=== PATIENT | male | born 1980 | race African-American/Black ===

== ENCOUNTER 2019-03-06 07:30 | Emergency (ER) | payer OTHER, SELFPAY ==
--- NOTE | 2019-03-06 08:35 | RAD ---
LEFT KNEE 5 VIEWS: HISTORY: left knee pain COMPARISON: 02/28/2014 FINDINGS: No fracture, dislocation or bony destruction is seen.
== END 2019-03-06 09:00 | disposition home or self-care (01) ==
LOC: MADERS 07:30
DX: S83.92XA Sprain of unspecified site of left knee, initial encounter (principal); X58.XXXA Exposure to other specified factors, initial encounter

== ENCOUNTER 2022-02-20 07:42 | Emergency (ER) | payer OTHER ==
[2022-02-20] MEDS ORDERED: Ibuprofen 800 MG TAB ONE (08:19)
== END 2022-02-20 08:27 | disposition home or self-care (01) ==
LOC: MADERS 07:42
DX: M25.471 Effusion, right ankle (principal)
CPT/HCPCS: 99283

== ENCOUNTER 2022-03-06 16:30 | Outpatient (CLI) | payer OTHER ==
[2022-03-06 17:39] LABS: ALT (SGPT) 21 U/L (8-55); AST (SGOT) 26 U/L (5-34); Albumin 4.6 g/dL (3.5-5.0); Alkaline Phosphatase 76 U/L (40-110); Anion Gap 17 mmol/L (10-20); BUN (Urea Nitrogen) 12 mg/dL (8.9-20.6); Bilirubin, Total 0.4 mg/dL (0.2-1.2); Calc. Creatinine Clearance 0 mL/min (70-130); Calcium 10.2 mg/dL (7.8-10.44); Carbon Dioxide 29 mmol/L (22-29); Chloride 104 mmol/L (98-107); Globulin 3.5 g/dL (2.4-3.5); Glucose 103 mg/dL (70-105); Potassium 5.1 mmol/L (3.5-5.1); Protein, Total 8.1 g/dL (6.0-8.3); Sodium 145 mmol/L (136-145); Uric Acid 8.8 mg/dL (3.5-7.2)
== END 2022-03-06 16:31 | disposition home or self-care (01) ==
LOC: MADLAB 16:30
PROVIDERS: ATTEND Family Medicine
DX: M10.9 Gout, unspecified (principal)
CPT/HCPCS: 80053; 84550

== ENCOUNTER 2023-10-25 08:07 | Emergency (ER) | payer BC | END 2023-10-25 08:46 | disposition home or self-care (01) | LOC: MADERS 08:07 | DX: M25.562 Pain in left knee (principal); I10 Essential (primary) hypertension | CPT/HCPCS: 99283 ==

== ENCOUNTER 2025-09-08 08:31 | Outpatient (CLI) | payer OTHER ==
[2025-09-08 09:27] LABS: Anion Gap 17 mmol/L (10-20); BUN (Urea Nitrogen) 16 mg/dL (8.9-20.6); Calc. Creatinine Clearance 0 mL/min (70-130); Calcium 9.6 mg/dL (7.8-10.44); Carbon Dioxide 23 mmol/L (22-29); Chloride 107 mmol/L (98-107); Glucose 104 mg/dL (70-105); Potassium 3.8 mmol/L (3.5-5.1); Sodium 143 mmol/L (136-145); Uric Acid 7.6 mg/dL (3.7-7.7)
== END 2025-09-08 08:32 | disposition home or self-care (01) ==
LOC: MADLAB 08:31
PROVIDERS: ATTEND Family Medicine
DX: M10.9 Gout, unspecified (principal); Z83.3 Family history of diabetes mellitus
CPT/HCPCS: 36415; 80048; 83036; 84550